=== PATIENT | male | born 1970 | race Two or more races ===

== ENCOUNTER 2018-09-13 10:24 | Emergency (ER) | payer MEDICAID ==
[~2018-09-13] VITALS: Ht 175.3 cm; Wt 106.6 kg
[2018-09-13 11:12] LABS: Basophils # (auto) 0.1 uL; Eosinophils # (auto) 0.1 uL; Eosinophils % (auto) 1.3 % (0.0-7.0); Hematocrit 48.5 % (41.0-53.0); Hemoglobin 16.2 g/dL (13.5-17.5); Lymphocytes # (auto) 1.7 uL; Lymphocytes % (auto) 21.7 % (10.0-50.0); Mean Corpuscular Hgb Conc. 33.4 g/dL (32.0-36.0); Mean Corpuscular Volume 86.7 fL (80.0-100.0); Monocytes # (auto) 0.4 uL; Monocytes % (auto) 4.6 % (0.0-12.0); Neutrophils # (auto) 5.7 uL; Neutrophils % (auto) 71.4 % (37.0-80.0); Platelet Count (auto) 273 10^3/uL (140-450); Red Blood Cells 5.59 10^6/uL (4.5-5.90); Red Cell Distribution Width 12.6 % (11.8-14.3)
[2018-09-13 11:14] LABS: Urine Bacteria NONE SEEN /hpf (None Seen); Urine Blood Negative /uL (Negative); Urine Specific Gravity 1.032 (1.001-1.035); Urine WBC 1 /hpf (0 - 3)
[2018-09-13 11:27] LABS: Albumin 3.7 g/dL (3.4-5.0); BUN/Creatinine Ratio 11.5; Calcium 8.8 mg/dL (8.5-10.1); Potassium 4.8 mmol/L (3.5-5.1)
[2018-09-13 11:35] LABS: Bilirubin, Total 0.6 mg/dL (0.2-1.0); Total Protein 7.6 g/dL (6.4-8.2)
[2018-09-13] MEDS ORDERED: SODIUM CHLORIDE 0.9% 2,000 ML IV ONE (12:30)
[2018-09-13] MEDS ORDERED: SODIUM CHLORIDE 0.9% 1,000 ML IVB ONE (13:15)
[2018-09-13 14:03] LABS: Magnesium 2.3 mg/dL (1.6-2.6)
[2018-09-13 14:11] LABS: INR 0.95 (0.9-1.15); Partial Thromboplastin Time 28.7 sec (23.78-33.04); Prothrombin Time 10.2 sec (9.27-12.13)
[2018-09-13] MEDS ORDERED: InsuLIN REG 1unit/0.01ml Soln (100units/ml) SC ONE (15:00)
[2018-09-13 17:16] VITALS: BP 138/90
== END 2018-09-13 17:34 | disposition home or self-care (01) ==
LOC: ER 10:26
DX: E11.65 Type 2 diabetes mellitus with hyperglycemia (principal); R07.89 Other chest pain; I10 Essential (primary) hypertension
CPT/HCPCS: 36415; 71045; 80053; 81001; 82962; 83735; 84484; 85025; 85610; 85730; 93005; 94761; 96360; 96372; 99285; J1815; J7030

== ENCOUNTER 2021-05-08 01:41 | Emergency (ER) | payer MEDICAID ==
[~2021-05-08] VITALS: Ht 175.3 cm; Wt 93.0 kg
[2021-05-08 02:20] LABS: Basophils # (auto) 0.1 10 ^3/uL (0-0.2); Basophils % (auto) 0.5 % (0.0-2.0); Eosinophils # (auto) 0.2 10 ^3/uL (0-0.8); Eosinophils % (auto) 1.7 % (0.0-7.0); Hematocrit 39.8 % (41.0-53.0); Hemoglobin 13.4 g/dL (13.5-17.5); Lymphocytes # (auto) 2.1 10 ^3/uL (0.4-5.4); Lymphocytes % (auto) 17.1 % (10.0-50.0); Mean Corpuscular Hgb Conc. 33.6 g/dL (32.0-36.0); Mean Corpuscular Volume 86.4 fL (80.0-100.0); Monocytes # (auto) 0.7 10 ^3/uL (0-1.3); Monocytes % (auto) 5.9 % (0.0-12.0); Neutrophils # (auto) 9.4 10 ^3/uL (1.6-8.6); Neutrophils % (auto) 74.8 % (37.0-80.0); Platelet Count (auto) 273 10^3/uL (140-450); Red Blood Cells 4.61 10^6/uL (4.5-5.90); Red Cell Distribution Width 12.5 % (11.8-14.3); White Blood Cell 12.6 10^3/uL (4.4-10.8)
[2021-05-08 02:40] LABS: Albumin 3.6 g/dL (3.4-5.0); Calcium 9.1 mg/dL (8.5-10.1); Potassium 4.4 mmol/L (3.5-5.1)
[2021-05-08 02:42] LABS: BUN/Creatinine Ratio 18.9
[2021-05-08 02:45] LABS: Bilirubin, Total 0.4 mg/dL (0.2-1.0)
[2021-05-08] MEDS ORDERED: KETOROLAC TROMETH 60MG/2ML VIAL IM ONE (07:00)
[2021-05-08 07:39] LABS: Basophils # (auto) 0.1 10 ^3/uL (0-0.2); Basophils % (auto) 0.5 % (0.0-2.0); Eosinophils # (auto) 0.2 10 ^3/uL (0-0.8); Eosinophils % (auto) 1.7 % (0.0-7.0); Hematocrit 39.7 % (41.0-53.0); Hemoglobin 13.4 g/dL (13.5-17.5); Lymphocytes # (auto) 2.1 10 ^3/uL (0.4-5.4); Lymphocytes % (auto) 18.4 % (10.0-50.0); Mean Corpuscular Hemoglobin 29.4 pg (28.0-32.0); Mean Corpuscular Hgb Conc. 33.8 g/dL (32.0-36.0); Mean Corpuscular Volume 86.8 fL (80.0-100.0); Monocytes # (auto) 0.9 10 ^3/uL (0-1.3); Monocytes % (auto) 8.3 % (0.0-12.0); Neutrophils # (auto) 8.1 10 ^3/uL (1.6-8.6); Neutrophils % (auto) 71.1 % (37.0-80.0); Platelet Count (auto) 240 10^3/uL (140-450); Red Blood Cells 4.58 10^6/uL (4.5-5.90); Red Cell Distribution Width 12.9 % (11.8-14.3); White Blood Cell 11.4 10^3/uL (4.4-10.8)
[2021-05-08 08:01] LABS: Albumin 3.4 g/dL (3.4-5.0); CRP High Sensitivity 0.5 mg/dL (< 0.3); Calcium 8.6 mg/dL (8.5-10.1); Potassium 4.4 mmol/L (3.5-5.1); Uric Acid 4.8 mg/dL (3.5-7.2)
[2021-05-08 08:04] LABS: BUN/Creatinine Ratio 22.2; Bilirubin, Total 0.3 mg/dL (0.2-1.0); Total Protein 6.8 g/dL (6.4-8.2)
[2021-05-08 09:30] VITALS: BP 139/93
== END 2021-05-08 09:36 | disposition home or self-care (01) ==
LOC: ER 01:41
DX: M79.672 Pain in left foot (principal); I10 Essential (primary) hypertension; E11.9 Type 2 diabetes mellitus without complications
CPT/HCPCS: 36415; 73630; 80053; 84550; 85025; 86141; 96372; 99285; J1885